=== PATIENT | male | born 1980 | race Caucasian/White ===

== ENCOUNTER 2020-05-24 16:01 | Emergency (ER) | payer OTHER ==
[~2020-05-24] VITALS: Ht 177.8 cm; Wt 81.7 kg
[2020-05-24] MEDS ORDERED: LIDODERM1 EACH TOP (18:17)
[2020-05-24] MEDS ORDERED: FLEXERIL PO (18:17)
[2020-05-24 18:31] VITALS: BP 111/69
== END 2020-05-24 18:31 | disposition home or self-care (01) ==
LOC: ER 16:01
DX: M54.5 Low back pain (principal); X50.1XXA Overexertion from prolonged static or awkward postures, initial encounter; Y93.89 Activity, other specified; Y92.091 Bathroom in other non-institutional residence as the place of occurrence of the external cause; Y99.8 Other external cause status